=== PATIENT | male | born 1995 | race Hispanic/Latino ===

== ENCOUNTER 2018-03-09 09:20 | Emergency (ER) | payer MEDICAID, OTHER ==
[2018-03-09] MEDS ORDERED: IBUPROFEN 600 MG TABLET ONE (10:09)
== END 2018-03-09 10:42 | disposition home or self-care (01) ==
LOC: EDH 09:20
DX: L05.01 Pilonidal cyst with abscess (principal)
CPT/HCPCS: 10081

== ENCOUNTER 2024-09-12 20:05 | Emergency (ER) | payer SELFPAY ==
[~2024-09-12] VITALS: Ht 160 cm; Wt 94.5 kg
--- NOTE | 2024-09-12 20:08 | NUR ---
COVID , FLU AND STREP SWABS COLLECTED AND SENT
[2024-09-12] MEDS: ondanSETRON ODT 4MG TAB ONE (20:15)
--- NOTE | 2024-09-12 20:15 | NUR ---
MEDICATION RATIONALE EXPLAINED TO PT, PT UNDERSTOOD TEACHING WITH VERBAL TEACHBACK
[2024-09-12 21:19] LABS: RAPID GROUP A STREP negative (NEGATIVE)
[2024-09-12 21:21] LABS: SARS-CoV-2, RNA, NAAT NEGATIVE SARS CoV-2 (NEGATIVE)
[2024-09-12 21:27] LABS: INFLUENZA TYPE A Negative For Type A (NEGATIVE); INFLUENZA TYPE B Negative For Type B (NEGATIVE)
[2024-09-12 22:31] LABS: BASOPHILS # (AUTO) 0.01 K/uL (0.00-0.20); BASOPHILS % (AUTO) 0.1 % (0.0-5.0); EOSINOPHILS # (AUTO) 0.01 K/uL (0.00-0.70); EOSINOPHILS % (AUTO) 0.1 % (0.0-8.0); HEMATOCRIT 47.4 % (42-54); IMMATURE GRANULOCYTE ABSOLUTE 0.02 K/uL (0-1); LYMPHOCYTES # (AUTO) 1.9 K/uL (1.0-4.8); LYMPHOCYTES % (AUTO) 27.2 % (21.0-51.0); MEAN CORPUSCULAR HEMOGLOBIN 33.3 pg (27.0-33.0); MEAN CORPUSCULAR HGB CONC 35.7 g/dL (32.0-36.0); MEAN CORPUSCULAR VOLUME 93.3 fL (79-99); MONOCYTES # (AUTO) 0.4 K/uL (0.1-1.0); MONOCYTES % (AUTO) 5.3 % (3.0-13.0); NEUTROPHILS # (AUTO) 4.8 K/uL (1.8-7.7); PLATELET COUNT (AUTO) 218 K/uL (130-400); RED BLOOD CELL COUNT(AUTO) 5.08 MIL/uL (4.50-6.20); RED CELL DISTRIBUTION WIDTH 11.8 % (11.0-15.5); WHITE BLOOD COUNT (AUTO) 7.1 K/uL (4.8-10.8)
--- NOTE | 2024-09-12 22:36 | HMCIMG ---
-CT HEAD/BRAIN W/O CONTRAST HISTORY: Severe frontal headaches COMPARISON: None TECHNIQUE: Multiple sequential axial images of the head were obtained from the base of the skull through vertex. Patient was not given contrast through intravenous route. FINDINGS: The ventricles and extraventricular CSF spaces are nondilated for patient's age. There is no midline shift, mass effect or herniation. No acute intracranial bleed is seen. There are bilateral ethmoid and maxillary sinusitis with mucoperiosteal thickening and air-fluid levels. IMPRESSION: 1. No acute intracranial bleed is seen. Bilateral ethmoid and maxillary sinusitis. CT was performed with one or more following dose reduction techniques: automated exposure control, adjustment of the mA and kv according to patient's size, or use of a iterative reconstruction technique.
[2024-09-12 22:48] LABS: CREATININE 0.8 mg/dL (0.5-1.3); POTASSIUM 4.1 mmol/L (3.5-5.1)
[2024-09-12 22:52] LABS: ALBUMIN 4.2 g/dL (3.5-5.0); BILIRUBIN,DIRECT 0.1 mg/dL (0.0-0.3); BILIRUBIN,TOTAL 0.6 mg/dL (0.2-1.0); TOTAL PROTEIN, SERUM 8.6 g/dL (6.0-8.3)
[2024-09-12] MEDS: dexaMETHasone SOD PHOSPHATE 4 MG/ML 1ML VIAL IM ONE (22:55)
[2024-09-12] MEDS: ketOROlac 30MG VIAL (30MG/ML) IM ONE (22:56)
[2024-09-12] MEDS ORDERED: METH4TAB3 PO (23:06)
[2024-09-12] MEDS ORDERED: AMOX1TAB16 PO (23:06)
[2024-09-12] MEDS ORDERED: KETO10TA2 PO (23:06)
--- NOTE | 2024-09-12 23:07 | ERN ---
General Chief Complaint: Flu Symptoms Stated Complaint: HEADACHE, CHILLS, COUGH,BODYACHE Time Seen by MD: 20:08 Time Seen by Midlevel: 20:08 History of Present Illness Allergies: Coded Allergies: No Known Allergies (Unverified Allergy, Unknown, 09/12/24) Past Medical History Past Medical History: No Pertinent History Past Surgical History: None Results Laboratory and Microbiology Lab and Micro Result Laboratory Tests Test 09/12/24 20:08 09/12/24 22:23 Influenza Type A Antigen Negative For Type A Influenza Type B Antigen Negative For Type B SARS-CoV-2, RNA, NAAT NEGATIVE SARS CoV-2 Group A Streptococcus Rapid negative (NEGATIVE) White Blood Count 7.1 K/uL (4.8-10.8) Red Blood Count 5.08 MIL/uL (4.50-6.20) Hemoglobin 16.9 g/dL (14.0-18.0) Hematocrit 47.4 % (42-54) Mean Corpuscular Volume 93.3 fL (79-99) Mean Corpuscular Hemoglobin 33.3 pg (27.0-33.0) H Mean Corpuscular Hemoglobin Concent 35.7 g/dL (32.0-36.0) Red Cell Distribution Width 11.8 % (11.0-15.5) Platelet Count 218 K/uL (130-400) Mean Platelet Volume 10.3 fL (7.5-10.5) Immature Granulocyte % (Auto) 0.3 % (0-1) Neutrophils (%) (Auto) 67.0 % (40.0-77.0) Lymphocytes (%) (Auto) 27.2 % (21.0-51.0) Monocytes (%) (Auto) 5.3 % (3.0-13.0) Eosinophils (%) (Auto) 0.1 % (0.0-8.0) Basophils (%) (Auto) 0.1 % (0.0-5.0) Neutrophils # (Auto) 4.8 K/uL (1.8-7.7) Lymphocytes # (Auto) 1.9 K/uL (1.0-4.8) Monocytes # (Auto) 0.4 K/uL (0.1-1.0) Eosinophils # (Auto) 0.01 K/uL (0.00-0.70) Basophils # (Auto) 0.01 K/uL (0.00-0.20) Absolute Immature Granulocyte (auto 0.02 K/uL (0-1) Nucleated Red Blood Cells 0.0 % (0.0-0.19) Sodium Level 142 mmol/L (136-145) Potassium Level 4.1 mmol/L (3.5-5.1) Chloride Level 100 mmol/L (101-111) L Carbon Dioxide Level 33 mmol/L (21-32) H Blood Urea Nitrogen 14 mg/dL (7-18) Creatinine 0.8 mg/dL (0.5-1.3) Glomerular Filtration Rate Calc 124 mL/min (>90) Random Glucose 96 mg/dL (70-105) Total Calcium 9.1 mg/dL (8.5-10.1) Total Bilirubin 0.6 mg/dL (0.2-1.0) Direct Bilirubin 0.1 mg/dL (0.0-0.3) Aspartate Amino Transf (AST/SGOT) 88 U/L (10-37) H Alanine Aminotransferase (ALT/SGPT) 166 U/L (12-78) H Alkaline Phosphatase 63 U/L (50-136) Total Protein 8.6 g/dL (6.0-8.3) H Albumin 4.2 g/dL (3.5-5.0) Lipase 25 U/L (16-77) ED Course Orders Procedure Category Date Status Time Covid Rna Naat LAB 09/12/24 Complete 20:08 Influenza Type A & B, LAB 09/12/24 Complete Rapid 20:08 Rapid (Group A Strep) LAB 09/12/24 Complete 20:08 Ondansetron Odt 4mg PHA 09/12/24 Complete Tab (Zofran 4mg Odt) 20:09 Cbc With Differential LAB 09/12/24 Complete 22:18 Basic Metabolic Panel LAB 09/12/24 Complete 22:18 Hepatic Function Panel LAB 09/12/24 Complete 22:18 Lipase LAB 09/12/24 Complete 22:18 Ct Head/Brain W/O CT 09/12/24 Resulted Contrast 22:18 Dexamethasone 4mg/Ml PHA 09/12/24 In Process 1ml Vial (Dexametha 23:00 Ketorolac PHA 09/12/24 In Process Tromethamine 30mg/Ml 23:00 Current Medications Medications (Trade) Dose Ordered Sig/Chelly Route PRN Reason Start Time Stop Time Status Last Admin Dose Admin Dexamethasone Sodium Phosphate (dexaMETHasone 4MG/ML 1ML VIAL) 10 mg ONCE ONCE IM 09/12/24 23:00 09/12/24 23:01 09/12/24 22:55 Ketorolac Tromethamine (toRADol) 30 mg ONCE ONCE IM 09/12/24 23:00 09/12/24 23:01 09/12/24 22:56 Ondansetron HCl (zoFRAN 4MG ODT) 4 mg STK-MED ONCE .ROUTE 09/12/24 20:09 09/12/24 20:10 DC 09/12/24 20:15 Vital Signs Date Time Temp Pulse Resp B/P (MAP) Pulse Ox O2 Delivery O2 Flow Rate FiO2 09/12/24 20:45 98.1 70 19 150/105 99 Room Air* 0 21 09/12/24 20:06 98.4 72 20 137/98 100 Room Air DX & DISP Disposition: Discharge Departure Impression: Primary Impression: Sinusitis Condition: Stable Scripts Ketorolac Tromethamine (Ketorolac Tromethamine) 10 Mg Tablet 1 TAB PO TID for pain for 5 Days, #15 TAB 0 Refills Prov: JESUS SAXENA 09/12/24 Methylprednisolone (Medrol) 4 Mg Tab.ds.pk 1 TAB PO AD for 6 Days, #21 TAB 0 Refills 6 on day 1 then reduce by one tablet daily until gone Prov: JESUS SAXENA 09/12/24 Amoxicillin/Potassium Clav (Amox Tr-K Clv 875-125 mg Tab) 875 Mg-125 Mg Tablet 1 EACH PO BID for 7 Days, #14 TAB 0 Refills Prov: JESUS SAXENA 09/12/24 Additional Instructions: Your blood work today is stable. Your CT scan of the head is negative for any intracranial bleed however there is congestion to the maxillary/ethmoid sinuses consistent with sinusitis. Follow up with for amoxicillin, steroids, and Toradol which should help with your symptoms. Follow up with your primary care doctor in 2-3 days for repeat evaluation. Return to the ER for any new or worsening symptoms Referrals: SELF,REFERRAL (PCP) I have reviewed the case, and I agree with, Diagnosis and Plan JESUS SAXENA Sep 12, 2024 23:07
[2024-09-12 23:12] VITALS: BP 144/99; PULSE 64; RESP 19; TEMP 98.9; O2SAT 99
== END 2024-09-12 23:22 | disposition home or self-care (01) ==
LOC: EDH 20:05
DX: J32.9 Chronic sinusitis, unspecified (principal); Z20.822 Contact with and (suspected) exposure to COVID-19
CPT/HCPCS: 99285; 70450; 87635; 80076; 80048; 83690; 85025; 87880; 87804 ×2; 36415; 96372 ×2; J1100; J1885